=== PATIENT | female | born 1940 | race Caucasian/White ===

== ENCOUNTER 2016-12-01 16:41 | Inpatient (IN) ==
[2016-12-01] MEDS ORDERED: Ondansetron 4 MG/2 ML VIAL IVP PRN (21:35)
[2016-12-01] MEDS ORDERED: Acetaminophen 325 MG TABLET PO PRN (21:35)
[2016-12-01] MEDS ORDERED: Naloxone 0.4 MG/ML INJ IVP PRN (21:35)
[2016-12-01] MEDS ORDERED: Albuterol 2.5 MG/3 ML NEBULIZER IH PRN (21:44)
--- NOTE | 2016-12-01 22:15 | Internal Med History&Physical ---
Date of Encounter: 12/01/16 Time of Encounter: 21:00 Assessment and Plan (1) Thrombus Current visit: Yes Status: Acute 1 patient presented with L leg pain and swelling for approx 2 weeks. Venous doppler revealed no DVT however no color doppler signal seen within the superficial femoral artery. Occlusion or high grade stenosis is possible . Patient was given 90 mg of lovenox at outlying facility. Doppler pulses present extremity pink and warm. Obtain CTA- may need to start heparin - consult vascular as needed (2) Anemia Current visit: Yes Status: Acute 1. patient reports chronic hx of anemia - no active bleeding noted HGB 8 7 unsure of baseline. will obtain anemia work up Qualifiers: Anemia type: unspecified type Qualified Code(s): D64.9 - Anemia, unspecified (3) Chronic cerebrovascular accident Current visit: Yes Status: Acute 1 Patient had CVA in 2013, use walker for ambulation , no other deficit. will continue with ASA (4) COPD (chronic obstructive pulmonary disease) Current visit: Yes Status: Acute 1 no exacerbation at this time, oxygen as needed to maintain spo2>92% bronchodilators Qualifiers: COPD type: unspecified COPD Qualified Code(s): J44.9 - Chronic obstructive pulmonary disease, unspecified Internal Medicine - H&P: HPI Chief complaint: Left leg swelling pain Admitted From: Hospital to Hospital Transfer Plans for Post Hospital Care: Home History of present illness: Ms. Arias is a 76 year old female with past medical history of anemia hypothyroidism CVA COPD hypertension anxiety and arthritis. Patient was seen by her primary care physician yesterday is advised to go to the ER today for ultrasound of her leg. According to patient she has been experiencing left lower leg pain for approximately 2 months however according to [facility] notes patient's been experiencing pain for past 2 weeks. She states the pain is like a sharp aching throbbing it is constant and is worse on ambulation. She notes that left leg is much larger than her right leg. According to ER records her vital signs upon arrival were blood pressure 130/76 temperature is 90.8 pulse was 80 respiratory 20 S3 to 96%. Lab work revealed hemoglobin 8.7 no leukocytosis chest x-ray subtle opacity and right lung base which could represent pneumonia. Lower extremity venous ultrasound revealed no DVT in the left leg however occlusion or high-grade stenosis within the left superficial femoral artery. She was given 90 mg of Lovenox as well as pain medication and was transferred to [facility] for further workup and evaluation. Presently the patient complains of left leg pain. The left leg is warm pink, with doppler pulses . She denies any chest pain or shortness of breath at present time she is hemodynamically stable.I reviewed the case with Dr Walters who agrees with plan Past Med Surg Social Fam HX - Past Medical History Medical history: arthritis, COPD, hypertension, other Psychiatric history: anxiety, depression - Social History Smoking Status: Current every day smoker Packs per day: 1 Smokeless Tobacco Status: No Alcohol use: none Drug use: none - Family History Mother Living Status: Hx Family Cancer: Yes Father Living Status: Hx Family Neurologic Disorders: Yes Internal Medicine - H&P: Meds Albuterol Neb 90 mcg IH Q4HR PRN 12/01/16 [History] Albuterol Sulfate [Albuterol Inhaler] 2.5 mg IH QID 12/01/16 [History] Aspirin [Lo-Dose Aspirin EC] 81 mg PO DAILY 12/01/16 [History] Gabapentin [Neurontin] 800 mg PO TID 12/01/16 [History] Ibuprofen [Advil] 200 mg PO HS 12/01/16 [History] Lisinopril [Lisinopril] 30 mg PO DAILY 12/01/16 [History] Metoprolol [Lopressor] 100 mg PO QAM 12/01/16 [History] Polyethylene Glycol 3350 [MiraLAX] 17 gm PO DAILY 12/01/16 [History] Potassium Chloride [Potassium Chloride 10 mEq/100mL] 10 meq PO DAILY 12/01/16 [ History] Venlafaxine [Effexor] 75 mg PO DAILY 12/01/16 [History] Allergies Sulfa (Sulfonamide Antibiotics) Allergy (Verified 12/01/16 20:43) Swelling of the Eye All Systems PM: A 10-system review of systems was performed and is negative for pertinent findings except as documented above in the HPI. - Constitutional Constitutional: no chills, no fever(s), no night sweats - EENT Eyes: no change in vision, no discharge, no pain, no photophobia Nose, mouth and throat: no dysphagia, no nasal discharge, no neck pain, no sore throat - Cardiovascular Cardiovascular ROS IM: edema, no chest pain, no diaphoresis, no dyspnea, no lightheadedness, no palpitations, no syncope Additional comments: Left leg swelling - Respiratory Respiratory: no cough, no dyspnea, no wheezing, no excessive phlegm production - Gastrointestinal Gastrointestinal: no abdominal pain, no diarrhea, no hematemesis, no hematochezia, no melena, no nausea, no vomiting - Genitourinary Genitourinary: no change in urinary stream, no dysuria, no flank pain, no hematuria - Neurological Neurological ROS: no confusion, no convulsions, no focal weakness, no numbness, no tingling, no tremor(s) - Psychiatric Psychiatric: anxiety - Constitutional Vitals: Temp Pulse Resp BP Pulse Ox 98.8 F 61 18 138/78 97 12/01/16 19:20 12/01/16 19:20 12/01/16 19:20 12/01/16 19:20 12/01/16 19:20 General appearance: Present: A&O X 2, underweight, answers questions appropriately - Head Head exam: Present: atraumatic, normocephalic - Respiratory Respiratory exam: Absent: accessory muscle use, rales, rhonchi, wheezes Additional comments: Crackles in bases bilaterally - Cardiovascular Cardiovascular exam: Present: RRR, +S1, +S2. Absent: diastolic murmur, gallop, rubs, systolic murmur - GI/Abdominal GI/Abdominal exam: Present: normal bowel sounds, soft, no peritoneal signs. Absent: distended, tenderness - Extremities Exam Extremities exam: Present: pedal edema, warm, radial pulses palpable and symetrical. Absent: calf tenderness, cyanotic Additional comments: 1 left leg with +1 edema. Doppler pulses bilaterally - Neurological Exam Neurological exam: Present: CN II-XII intact, oriented X3, no focal deficits. Absent: pronater drift, facial droop, speech deficit - Skin Skin exam: Present: dry, intact Internal Med - H&P Results - Labs Labs: Laboratory results per [facility] dated 12/01/2016 Chem-7 sodium 141 potassium 4.3, chloride 104, bicarbonate 28, BUN 27, creatinine 0.67, glucose 73 CBC WBC 5.6 hemoglobin 8.7, hematocrit 26.7 platelets 327 GFR greater than 60, - Diagnostic Studies Chest x-ray Additional comments: Chest x-ray per radiology report minimal airspace a patient in the right lung base which may represent pneumonia. Recommend clinical correlation. Venous US Additional comments: 1 lower extremity duplex venous ultrasound left leg #1 no DVT in the left leg #2 no color Doppler signal seen within the superficial femoral artery. Occlusion or high-grade stenosis is possible. Consider CT for further evaluation.
[2016-12-01] MEDS: *HR* HYDROcodone/Acet 5/325 mg TABLET PO PRN (22:25)
[2016-12-01] MEDS: Ipratropium/Albuterol Neb 3 ML IH SCH (23:10)
[2016-12-01] MEDS ORDERED: 0.9 % Sodium Chloride 1,000 ML IVC SCH (23:30)
[2016-12-02] MEDS: Ipratropium/Albuterol Neb 3 ML IH SCH ×4 (04:40→23:13)
[2016-12-02 06:12] LABS: Basophils % 0.6 %; Eosinophils # 0.4 K/mcL (0.0-0.6); Hematocrit 24.7 % (35.3-44.9); Hemoglobin 7.5 g/dL (11.5-15.4); Immature Granulocytes % 0.4 % (0-4); Lymphocytes # 1.2 K/mcL (0.6-4.6); Lymphocytes % 22.9 %; Mean Corpuscular HGB Conc 30.4 g/dL (31.6-35.5); Mean Corpuscular Hemoglobin 25.6 pg (28.0-33.3); Mean Corpuscular Volume 84.3 fL (83.0-100.0); Mean Platelet Volume 9.2 fL (9.4-12.4); Monocytes # 0.6 K/mcL (0.0-1.3); Monocytes % 10.7 %; Platelet Count 255 K/mcL (140-400); Red Blood Count 2.93 M/mcL (3.82-4.97); Red Cell Distribution Width 18.3 % (11.5-14.5); Segmented Neutrophils % 57.4 %
[2016-12-02 06:17] LABS: % Iron Saturation 19 % (15-50); BUN/Creatinine Ratio 26 (6-26); Blood Urea Nitrogen 16 mg/dL (7-20); Calcium 8.4 mg/dL (8.6-10.8); Carbon Dioxide 25 mEq/L (19-29); Chloride 107 mEq/L (98-109); Glucose 97 mg/dL (70-99); Iron 37 mcg/dL (50-170); Osmolality,Calculated 293 (280-300); Sodium 141 mEq/L (136-145); Transferrin 138 mg/dL (180-382); eGFR For African Americans > 60 (> 60); eGFR For Non-African Americans > 60 (> 60)
[2016-12-02 06:40] LABS: Ferritin 183 ng/ml (5-204)
[2016-12-02] MEDS ORDERED: *HR* Enoxaparin 60 MG/0.6 ML SYRINGE SQ SCH (07:00)
[2016-12-02] MEDS: Metoprolol 100 MG TABLET PO SCH (09:26)
[2016-12-02] MEDS: Lisinopril 20 MG TABLET PO SCH (09:27)
[2016-12-02] MEDS: Aspirin Enteric Coated 81 MG Tablet PO SCH (09:28)
[2016-12-02] MEDS: *HR* HYDROcodone/Acet 5/325 mg TABLET PO PRN ×2 (09:28→19:24)
[2016-12-02] MEDS: Gabapentin 400 MG CAPSULE PO SCH ×3 (09:28→21:34)
[2016-12-02] MEDS: Venlafaxine XR (24 HR) 75 MG CAP.ER.24H PO SCH (09:28)
[2016-12-02 10:25] LABS: INR 1.2; Prothrombin Time 12.8 Seconds (9.4-12.1)
--- NOTE | 2016-12-02 11:06 | Vascular/Endovasc Consult Note ---
Date of Encounter: 12/02/16 Time of Encounter: 11:01 Assessment and Plan (1) PAD (peripheral artery disease) Current Visit: Yes Status: Chronic The patient has chronic atherosclerotic disease involving the aortoiliac and bilateral superficial femoral artery segments. She does not present with limb threatening ischemia or nocturnal rest pain. Due to her seizure disorder she does not do much walking and so claudication cannot be evaluated. Also she has significant COPD that would restrict her overall physical activity. I recommended that a bilateral lower extremity arterial segmental study and a carotid artery duplex scan be obtained today to better quantify her vascular disease. (2) Leg swelling Current Visit: Yes Status: Acute No obvious etiology for lower extremity swelling. On report from outside facility there is no DVT. The chronic atherosclerotic disease of her arteries will not cause swelling. I suggest this may be secondary to her stroke and dependent position. (3) Tobacco abuse Current Visit: Yes Status: Chronic Patient advised to cease all tobacco use. - History of Present Illness Consult date: 12/02/16 Consult reason: Leg pain and swelling Chief complaint: Leg pain and swelling History of present illness: Ms. Arias is a 76 year old female Admitted on transfer from [facility] last night. Patient has at least a 2-3 week history of swelling of the lower extremities more so on the left side than on the right. She has difficulties wearing shoes. The swelling persists throughout the day and she does not notice a significant difference in the morning versus the evening. In addition to this she has chronic pain involving the lower extremities as well. This pain is in the hip and bilateral lower extremities though as in the swelling is worse on the left side than on the right. She describes the pain as an achy type of pain that is episodic in its timing. It appears to be worse at night and worse when lying supine. The pain is sometimes better controlled when sitting upright. The pain does not appear that to be that of ischemic rest pain or nocturnal rest pain. Unfortunately she does very little walking and needs a walker for assistance. 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 She is unsure if she is had a carotid artery duplex scan area She actually did very well in rehabilitation but then after that developed a seizure disorder and has been put back into a situation where she requires a walker for ambulation. She presently lives with relatives on a 1 story environment. She does not use stairs. She denies any previous problems with her lower extremities. She denies any previous issues in regards to venous thrombosis or arterial disease. She has had no previous lower extremity operations. Last night the patient had a CT angiogram of the lower extremities. I have reviewed these images. These demonstrate atherosclerotic disease of the aorto pelvic segment with bilateral iliac disease. More importantly however the patient has bilateral superficial femoral artery occlusions. These arterial lesions appear chronic. Her risk factors for vascular disease include a multi-decade history of tobacco use and she continues to smoke about 1 pack of cigarettes a day and hypertension. Past Med Surg Social Fam HX - Past Medical History Medical history: arthritis, COPD, CVA, hypertension, seizures, other Psychiatric history: anxiety, depression - Social History Smoking Status: Current every day smoker Packs per day: 1 Smokeless Tobacco Status: No Alcohol use: none Drug use: none - Family History Mother Living Status: Hx Family Cancer: Yes Father Living Status: Hx Family Neurologic Disorders: Yes Medications and Allergies Albuterol Neb 90 mcg IH Q4HR PRN 12/01/16 [History] Albuterol Sulfate [Albuterol Inhaler] 2.5 mg IH QID 12/01/16 [History] Aspirin [Lo-Dose Aspirin EC] 81 mg PO DAILY 12/01/16 [History] Gabapentin [Neurontin] 800 mg PO QID 12/01/16 [History] Ibuprofen [Advil] 200 mg PO HS 12/01/16 [History] Lisinopril [Lisinopril] 30 mg PO DAILY 12/01/16 [History] Polyethylene Glycol 3350 [MiraLAX] 17 gm PO DAILY 12/01/16 [History] Potassium Chloride [Potassium Chloride 10 mEq/100mL] 10 meq PO DAILY 12/01/16 [ History] Venlafaxine [Effexor] 75 mg PO DAILY 12/01/16 [History] Doxepin [Sinequan] 25 mg PO BID 12/02/16 [History] Folic Acid 1 mg PO DAILY 12/02/16 [History] Methotrexate [Otrexup] 2.5 mg PO QWEEK 12/02/16 [History] Metoprolol XL (24 HR) Succ [Toprol XL] 100 mg PO DAILY 12/02/16 [History] Oxybutynin Chloride [Ditropan Xl] 10 mg PO DAILY 12/02/16 [History] Allergies Sulfa (Sulfonamide Antibiotics) Allergy (Verified 12/01/16 20:43) Swelling of the Eye All Systems Review: A 10-system review of systems was performed and is negative for pertinent findings except as documented above in the HPI. Exam Vital Signs, Last 4 Hours Temp Pulse Resp BP Pulse Ox 12/02/16 07:15 98.2 F 88 18 175/86 92 L General: Present: Conversant, No Apparent Distress, Other (She is a thin elderly white female who looks ill and has many body changes consistent with chronic COPD.) HEENT: Present: Atraumatic, Normocephaly, Trachea midline, Other (Facial and neck muscle wasting) Neck: Absent: JVD, Left Carotid bruit, Right Carotid bruit, Midline deformity, Tracheal deviation Cardiac: Present: Reg Rate and Rhythm, Other (Very distant heart sounds due to her COPD) Lungs: Present: Decreased breath sounds, Other (Expiratory wheezes and rales with coarse breath sounds bilaterally) Neuro: Present: Alert and responsive, No focal deficits noted Abdomen: Present: Soft, Non-tender, Other (No abdominal bruits). Absent: Masses Vascular: Present: Normal capillary refill, Bruit (Bilateral femoral bruits), Pulse, absent (No palpable popliteal or pedal pulses bilaterally), Pulse, normal (2+ palpable femoral pulses bilaterally) Skin: Absent: Wound/ulcer(s) Musculoskeletal: Absent: No Chest Wall Tenderness Consult Discharge Plan - Plan Referrals: Robb Malik DO [Primary Care Provider] -
--- NOTE | 2016-12-02 16:51 | Internal Med Progress Note ---
Date of Encounter: 12/02/16 Time of Encounter: 16:47 - Assessment and plan (1) PAD (peripheral artery disease) Current Visit: Yes Status: Chronic Assessment and plan: The patient is a oysterman use of tobacco, she is a chronic smoker and has finds that if vascular disease. However, there is no evidence of thrombosis or severe acute insufficiency. She was evaluated by vascular surgery, workup including vascular studies have been requested. We will follow results of arterial studies. CT aneurysm of the lower extremities noted, venous duplex of lower extremities rule out deep venous thrombosis. At this point there is no indication for the use of full dose Lovenox, we will stop anticoagulation. (2) Leg swelling Current Visit: Yes Status: Acute (3) COPD (chronic obstructive pulmonary disease) Current Visit: Yes Status: Acute Qualifiers: COPD type: unspecified COPD Qualified Code(s): J44.9 - Chronic obstructive pulmonary disease, unspecified (4) Anemia Current Visit: Yes Status: Acute Qualifiers: Anemia type: unspecified type Qualified Code(s): D64.9 - Anemia, unspecified - Time Spent With Patient 25 - 35 minutes - Subjective Interval history: 1st encounter with the patient. The patient is complaining of lower extremity pains since the last couple of weeks. No fever, no shortness of breath. - Constitutional Vitals: Temp Pulse Resp BP Pulse Ox 98.4 F 97 18 155/80 90 L 12/02/16 14:55 12/02/16 14:55 12/02/16 15:37 12/02/16 14:55 12/02/16 15:37 General appearance: Present: A&O X 2, underweight, answers questions appropriately - Head Head exam: Present: atraumatic, normocephalic - Eye Eye exam: Present: PERRL, conjuntiva pink, sclera anicteric Pupils: Present: PERRL - Neck Neck exam general surgery: Present: supple, trachea midline. Absent: lymphadenopathy - Respiratory Respiratory exam: Present: CTAB. Absent: accessory muscle use, rales, rhonchi, wheezes - Cardiovascular Cardiovascular exam: Present: RRR, +S1, +S2. Absent: diastolic murmur, gallop, rubs, systolic murmur - GI/Abdominal GI/Abdominal exam: Present: normal bowel sounds, soft, no peritoneal signs. Absent: distended, tenderness - Extremities Exam Extremities exam: Present: warm, radial pulses palpable and symetrical. Absent : calf tenderness, cyanotic, pedal edema - Neurological Exam Neurological exam: Present: CN II-XII intact, oriented X3, no focal deficits. Absent: pronater drift, facial droop, speech deficit - Skin Skin exam: Present: dry, intact Internal Medicine: Result - Labs CBC & Chem 7: 12/02/16 05:29 12/02/16 05:29 Labs: Short CBC 12/02/16 Range/Units 05:29 WBC 5.2 (4.3-11.1) K/mcL Hgb 7.5 L (11.5-15.4) g/dL Hct 24.7 L (35.3-44.9) % Plt Count 255 (140-400) K/mcL Neutrophils # 3.0 (1.6-8.9) K/mcL BMP 12/02/16 05:29 Sodium 141 Potassium 4.0 Chloride 107 Carbon Dioxide 25 BUN 16 Creatinine 0.61 Glucose 97 Calcium 8.4 L - ABG Interpretation ABG results: PT/INR, D-dimer PT 12.8 Seconds (9.4-12.1) H 12/02/16 10:05 - Impressions Impressions Chest X-Ray 12/01/16 21:59 IMPRESSION: Right lower lobe infiltrate. D/ / Lazaro Dominguez MD / Lazaro Dominguez MD Interpreting Provider: Lazaro Dominguez MD Aorta w/Runoff CTA 12/01/16 22:34 IMPRESSION: 1. No evidence for abdominal aortic aneurysm or dissection. 2. Moderate to severe proximal external iliac artery stenoses. I would suggest correlation with Doppler ultrasound. 3. Occlusion bilateral superficial femoral arteries with collateral reconstitution of the [id number] popliteal arteries. 4. 3 vessel runoff bilaterally. 5. Small right pleural effusion with lower lobe atelectasis. D/ / Asher Araya MD / Asher Araya MD Interpreting Provider: Asher Araya MD - VTE Documentation of Mechanical Device: Graduated compression elastic hosiery Consult Discharge Plan - Plan Referrals: Robb Malik DO [Primary Care Provider] -
[2016-12-02] MEDS ORDERED: IBUPROFEN 200 MG PO SCH (21:00)
[2016-12-03] MEDS: Ipratropium/Albuterol Neb 3 ML IH SCH ×2 (04:19→11:07)
[2016-12-03 04:39] LABS: Basophils % 0.6 %; Eosinophils # 0.2 K/mcL (0.0-0.6); Eosinophils % 3.6 %; Hematocrit 26.2 % (35.3-44.9); Hemoglobin 8.1 g/dL (11.5-15.4); INR 1.2; Immature Granulocytes % 0.3 % (0-4); Lymphocytes # 1.2 K/mcL (0.6-4.6); Lymphocytes % 18.4 %; Mean Corpuscular HGB Conc 30.9 g/dL (31.6-35.5); Mean Corpuscular Hemoglobin 25.4 pg (28.0-33.3); Mean Corpuscular Volume 82.1 fL (83.0-100.0); Mean Platelet Volume 8.7 fL (9.4-12.4); Monocytes # 0.5 K/mcL (0.0-1.3); Monocytes % 7.4 %; Neutrophils # 4.7 K/mcL (1.6-8.9); Platelet Count 265 K/mcL (140-400); Red Blood Count 3.19 M/mcL (3.82-4.97); Segmented Neutrophils % 69.7 %
[2016-12-03] MEDS ORDERED: *HR* Labetalol 20 MG/4 ML SYRINGE IVP ONE (04:56)
[2016-12-03 05:01] LABS: BUN/Creatinine Ratio 16 (6-26); Blood Urea Nitrogen 9 mg/dL (7-20); Calcium 8.8 mg/dL (8.6-10.8); Carbon Dioxide 24 mEq/L (19-29); Chloride 105 mEq/L (98-109); Glucose 107 mg/dL (70-99); Osmolality,Calculated 291 (280-300); Potassium 3.2 mEq/L (3.5-4.5); Sodium 141 mEq/L (136-145); eGFR For African Americans > 60 (> 60); eGFR For Non-African Americans > 60 (> 60)
[2016-12-03] MEDS ORDERED: *HR* Enoxaparin 40 MG/0.4 ML SYRINGE SQ SCH (07:00)
[2016-12-03] MEDS: Lisinopril 20 MG TABLET PO SCH (08:07)
[2016-12-03] MEDS: Metoprolol 100 MG TABLET PO SCH (08:07)
[2016-12-03] MEDS: Venlafaxine XR (24 HR) 75 MG CAP.ER.24H PO SCH (08:07)
[2016-12-03] MEDS: Aspirin Enteric Coated 81 MG Tablet PO SCH (08:07)
[2016-12-03] MEDS: *HR* HYDROcodone/Acet 5/325 mg TABLET PO PRN (08:07)
[2016-12-03] MEDS: Gabapentin 400 MG CAPSULE PO SCH (08:08)
--- NOTE | 2016-12-03 10:29 | Carotid Imaging Report ---
Carotid Duplex Patient Name:Geno Arias Order Number:[id number] Procedure Date:12/02/2016 Date:1940ge:76 yrs Gender:Female Lt BP:141 / mmHg Rt.BP:149 / mmHgHeart Rate: Location:[facility] Room #: [facility] Dredge Mechanic:Shahida Cerna RVT Referring MD:Mario Gardner MD, FACS asset protection detective:Robb Malik DO Reading MD:Mario Gardner MD , FACS Primary Indications:CVA Risk Factors Yes/No Hypertension Yes Smoking Current Yes Hx of CVA Yes Impressions: Findings: Right carotid system has nonstenotic plaque. Findings: Left proximal ICA has a moderate, 40-59% stenosis. Recommendations: Risk Factor Modification and Follow up exam 12 months. Findings Carotid Duplex: Right: There is nonstenotic plaque in the right bifurcation. There is smooth, heterogeneous calcified plaque. There is nonstenotic plaque in the right proximal internal carotid artery. There is smooth, heterogeneous calcified plaque. There is nonstenotic plaque in the right eca. There is smooth homogeneous plaque. Left: There is nonstenotic plaque in the left proximal common carotid artery. There is smooth homogeneous plaque. There is nonstenotic plaque in the left mid common carotid artery. There is smooth heterogeneous plaque. There is nonstenotic plaque in the left distal common carotid artery. There is smooth homogeneous plaque. There is nonstenotic plaque in the left bifurcation. There is irregular, heterogeneous calcified plaque. There is 40-59% stenosis in the left proximal internal carotid artery. There is irregular heterogeneous plaque. There is nonstenotic plaque in the left eca. There is smooth heterogeneous plaque. Prior Study: No prior study available for comparison. Carotid Results Right PSV EDV Assessment Proximal CCA 79 14 Normal Mid CCA 87 19 Normal Distal CCA 117 17 Normal Bifurcation 67 15 Non Stenotic Plaque Proximal ICA 107 36 Non Stenotic Plaque Mid ICA 106 25 Normal Distal ICA 103 26 Normal ECA 118 0 Non Stenotic Plaque Left PSV EDV Assessment Proximal CCA 107 22 Non Stenotic Plaque Mid CCA 167 27 Non Stenotic Plaque Distal CCA 162 29 Non Stenotic Plaque Bifurcation 117 22 Non Stenotic Plaque Proximal ICA 166 47 40-59% stenosis Mid ICA 127 35 Normal Distal ICA 110 31 Normal ECA 113 7 Non Stenotic Plaque Ratio's Right ICA/CCA Ratio: 1.22 ICA/CCA Values: 107/87 Left ICA/CCA Ratio: 0.99 ICA/CCA Values: 166/167 Updated by Mario Gardner MD, FACS on 12/03/2016 10:24:39 AM Mario Gardner MD electronically signed on 12/03/2016 10:25:15 AM with status of Final
--- NOTE | 2016-12-03 10:32 | Arterial Study Report ---
LE Arterial Physiologic Study Patient Name:Geno Arias Order Number:[id number] Procedure Date:12/02/2016 Date:1940ge:76 yrs Gender:Female Lt BP:141 / mmHg Rt.BP:149 / mmHgHeart Rate: Location:[facility] Room #: 3A53 Micromatic Hone Operator:Shahida Cerna RVT Referring MD:Mario Gardner MD, FACS performance test architect:DO Pamela Wynn MD:Mario Gardner MD , FACS Primary Indications:bilateral lower extremity pain, left worse than right Risk Factors Yes/No Hypertension Yes Smoking Current Yes Hx of CVA Yes Impressions: Findings LE Arterial Physiologic Exam: PVR: Right: The PVR waveforms are mildly diminished in the right high thigh and right lower thigh and moderately diminished in the right calf and right ankle. Left: The PVR waveforms are mildly diminished in the left high thigh and left lower thigh and moderately diminished in the left calf and left ankle. Prior Study: No prior study available for comparison. Wrist Brachial Index Right Systolic Diastolic WBI Brachial 149 Left Systolic Diastolic WBI Brachial 141 Updated by chevy on 12/02/2016 3:12:05 PM Mario Gardner MD electronically signed on 12/03/2016 10:29:03 AM with status of Final
[2016-12-03 11:46] VITALS: BP 174/84
--- NOTE | 2016-12-03 12:16 | Vascular/[facility] Progress Note ---
Date of Encounter: 12/03/16 Time of Encounter: 11:00 - Assessment and plan (1) PAD (peripheral artery disease) Current Visit: Yes Status: Chronic The patient has chronic atherosclerotic disease involving the aortoiliac and bilateral superficial femoral artery segments. She does not present with limb threatening ischemia or nocturnal rest pain. Due to her seizure disorder she does not do much walking and so claudication cannot be evaluated. Also she has significant COPD that would restrict her overall physical activity. I reviewed with the patient and family members the findings of the noninvasive study. I also gave him an overview of my interpretation of the patient's physical status. I do not believe that her vascular system though significantly diseased is the active agent in causing her present symptoms. I believe that her problems are primarily neural muscular and bony at this time and that vascular intervention with angiography or endovascular intervention is not indicated. The patient was invited to return to see me on a when necessary basis or as directed by her physicians. Due to the patient's overall poor health in exercise tolerance I believe that she will not generate claudicatory symptoms. At this time it is a matter of surveillance for the development of lower extremity wounds or infections. Note this is present on admission at this time. Therefore the patient may be discharged from a vascular standpoint and may be followed when necessary through the vascular surgery clinic. (2) Leg swelling Current Visit: Yes Status: Acute No obvious etiology for lower extremity swelling. On report from outside facility there is no DVT. The chronic atherosclerotic disease of her arteries will not cause swelling. I suggest this may be secondary to her stroke and dependent position. (3) Tobacco abuse Current Visit: Yes Status: Chronic Patient advised to cease all tobacco use. - Subjective Interval history: No new complaints. Patient's complains of overall weakness. He states swelling of left lower extremity is decreased as compared to yesterday. Vital Signs, Last 4 Hours Temp Pulse Resp BP Pulse Ox 12/03/16 11:45 97.3 F L 80 18 174/84 91 L 12/03/16 11:08 18 92 L - Physical Examination General: Present: Conversant, No Apparent Distress HEENT: Present: Atraumatic Neck: Absent: JVD Cardiac: Present: Reg Rate and Rhythm Neuro: Present: Alert and responsive, No focal deficits noted Vascular: Present: Color/Temperature (The bilateral lower extremities are warm to the touch. Her feet and toes are pink with 2-3 second capillary refill. The edema of the left lower extremity is less today as compared to yesterday. There is no signs of gross ischemia although the patient does not have palpable popliteal or pedal pulses. Patient's vascular status overall is stable.) - VTE Documentation of Mechanical Device: Graduated compression elastic hosiery Results 12/03/16 04:16 12/03/16 04:16 Lab Results, Last 24 hours 12/03/16 12/03/16 12/03/16 04:16 04:16 04:16 WBC 6.7 Hgb 8.1 L Hct 26.2 L Plt Count 265 INR 1.2 Sodium 141 Potassium 3.2 L Chloride 105 Carbon Dioxide 24 BUN 9 Creatinine 0.55 L Glucose 107 H Calcium 8.8 Magnesium 12/03/16 04:16 WBC Hgb Hct Plt Count INR Sodium Potassium Chloride Carbon Dioxide BUN Creatinine Glucose Calcium Magnesium 0.8 L - Imaging / Other Tests Non Invasive Vascular Testing: report reviewed, image reviewed (Patient has an ankle-brachial index of 0.5 on the right and 0.53 on the left. The segmental studies indicate multi level occlusive disease with mild to moderate inflow disease in the iliac segment and superficial femoral artery occlusions bilaterally. This was confirmed by CT angiogram performed earlier this admission. Carotid duplex scan shows a 40-59% left internal carotid artery stenosis. The right carotid system demonstrates nonsignificant plaque formation. ) Consult Discharge Plan - Plan Referrals: Robb Malik DO [Primary Care Provider] - Mario Gardner MD [Partnered Physician] - (Follow-up with Dr. Gardner on when necessary basis for lower extremity arterial occlusive disease.)
--- NOTE | 2016-12-03 12:46 | Discharge Summary ---
Date of Encounter: 12/03/16 Time of Encounter: 12:43 - Discharge Diagnosis (1) PAD (peripheral artery disease) Priority: Primary Status: Chronic (2) Leg swelling Priority: Secondary Status: Acute (3) COPD (chronic obstructive pulmonary disease) Priority: Secondary Status: Acute Qualifiers: COPD type: unspecified COPD Qualified Code(s): J44.9 - Chronic obstructive pulmonary disease, unspecified (4) Anemia Priority: Secondary Status: Acute Qualifiers: Anemia type: unspecified type Qualified Code(s): D64.9 - Anemia, unspecified - Discharge Medications Home Medications: Albuterol Neb 90 mcg IH Q4HR PRN 12/01/16 [History] Albuterol Sulfate [Albuterol Inhaler] 2.5 mg IH QID 12/01/16 [History] Aspirin [Lo-Dose Aspirin EC] 81 mg PO DAILY 12/01/16 [History] Gabapentin [Neurontin] 800 mg PO QID 12/01/16 [History] Lisinopril 30 mg PO DAILY 12/01/16 [History] Polyethylene Glycol 3350 [MiraLAX] 17 gm PO DAILY 12/01/16 [History] Potassium Chloride [Potassium Chloride 10 mEq/100mL] 10 meq PO DAILY 12/01/16 [ History] Venlafaxine [Effexor] 75 mg PO DAILY 12/01/16 [History] Doxepin [Sinequan] 25 mg PO BID 12/02/16 [History] Folic Acid 1 mg PO DAILY 12/02/16 [History] Methotrexate [Otrexup] 2.5 mg PO QWEEK 12/02/16 [History] Metoprolol XL (24 HR) Succ [Toprol Xl] 100 mg PO DAILY 12/02/16 [History] Oxybutynin Chloride [Ditropan Xl] 10 mg PO DAILY 12/02/16 [History] Allergies/Adverse Reactions: Allergies Sulfa (Sulfonamide Antibiotics) Allergy (Verified 12/01/16 20:43) Swelling of the Eye Procedures/tests Complete & Pending: Procedures Performed prior 72 hours Category Date Time Status CT angio aorta w con runoff [CT] Stat Cat Scan 12/01/16 22:34 Completed EV arterial study LE Routine Y 12/02/16 11:13 Completed EV carotid duplex imaging BI Routine Y 12/02/16 11:13 Completed Date of admission: 12/01/16 23:48 Primary care physician: Robb Malik, Consults: 12/01/16 21:33 Consult to Nutrition [CONS] Routine Comment: Consulting Provider: NUTRITION Reason for Dietary Consult: MST Score Consult to Floor Polisher [CONS] Routine Reason for SW Consult: Pt. states she is suppose to have home health. Discharging clinician: Mack Perez Anticipated date of discharge: 12/03/16 - Patient Status Disposition: Home, Self-Care Condition: Fair Functional capacity at discharge: independent ambulation Overall status at discharge: patient is back to baseline - Discharge Instructions Follow Up With: Robb Malik DO [Primary Care Provider] - Mario Gardner MD [Partnered Physician] - (Follow-up with Dr. Gardner on when necessary basis for lower extremity arterial occlusive disease.) - Diet and Activity Activity: increase activity as tolerated Diet: advance to your usual diet Interval History: Ms. Arias is a 76 year old female with past medical history of anemia hypothyroidism CVA COPD hypertension anxiety and arthritis. Patient was seen by her primary care physician yesterday is advised to go to the ER today for ultrasound of her leg. According to patient she has been experiencing left lower leg pain for approximately 2 months however according to [facility] notes patient's been experiencing pain for past 2 weeks. She states the pain is like a sharp aching throbbing it is constant and is worse on ambulation. She notes that left leg is much larger than her right leg. According to ER records her vital signs upon arrival were blood pressure 130/76 temperature is 90.8 pulse was 80 respiratory 20 S3 to 96%. Lab work revealed hemoglobin 8.7 no leukocytosis chest x-ray subtle opacity and right lung base which could represent pneumonia. Lower extremity venous ultrasound revealed no DVT in the left leg however occlusion or high-grade stenosis within the left superficial femoral artery. She was given 90 mg of Lovenox as well as pain medication and was transferred to [place] for further workup and evaluation. Presently the patient complains of left leg pain. The left leg is warm pink, with doppler pulses . She denies any chest pain or shortness of breath at present time she is hemodynamically stable.I reviewed the case with Dr Walters who agrees with plan Hospital course: Ms. Arias is a 76 year old female The patient is a group home use of tobacco, she is a chronic smoker and has clinical findings consistent with peripheral vascular disease. However, there is no evidence of thrombosis or severe acute insufficiency. She was evaluated by vascular surgery, workup including vascular studies have been requested, no evidence of severe PVD and no acute interventions are recommended on vascular surgery standpoint. CT angio of the lower extremities noted, venous duplex of lower extremities rule out deep venous thrombosis. At this point there is no indication for the use of full dose Lovenox, anticoagulation was stopped yesterday, she needs stable, afebrile, no signs of gangrene or thrombosis. We will discharge the patient home today, will continue with home medications but we will stop ibuprofen. The patient will follow up as outpatient with her primary care physician. Smoking cessation was strongly advised. - Time Spent with Patient Total time spent providing and/or coordinating discharge services: Greater than 30 minutes - Constitutional Vitals: Temp Pulse Resp BP Pulse Ox 97.3 F L 80 18 174/84 91 L 12/03/16 11:45 12/03/16 11:45 12/03/16 11:45 12/03/16 11:45 12/03/16 11:45 General appearance: Present: A&O X 2, underweight, answers questions appropriately - Head Head exam: Present: atraumatic, normocephalic - Eye Eye exam: Present: PERRL, conjuntiva pink, sclera anicteric Pupils: Present: PERRL - Neck Neck exam general surgery: Present: supple, trachea midline. Absent: lymphadenopathy - Respiratory Respiratory exam: Present: CTAB. Absent: accessory muscle use, rales, rhonchi, wheezes - Cardiovascular Cardiovascular exam: Present: RRR, +S1, +S2. Absent: diastolic murmur, gallop, rubs, systolic murmur - GI/Abdominal GI/Abdominal exam: Present: normal bowel sounds, soft, no peritoneal signs. Absent: distended, tenderness - Extremities Exam Extremities exam: Present: warm, radial pulses palpable and symetrical. Absent : calf tenderness, cyanotic, pedal edema - Neurological Exam Neurological exam: Present: CN II-XII intact, oriented X3, no focal deficits. Absent: pronater drift, facial droop, speech deficit - Skin Skin exam: Present: dry, intact - VTE Documentation of Mechanical Device: Graduated compression elastic hosiery
== END 2016-12-03 13:49 | disposition home or self-care (01) | DRG 301 ==
LOC: 3ANU
PROVIDERS: ADMIT Internal Medicine; ATTEND Internal Medicine